=== PATIENT | female | born 1945 | race Caucasian/White ===

== ENCOUNTER 2017-07-11 17:47 | Emergency (ER) | payer MEDICARE, OTHER ==
[~2017-07-11] VITALS: Wt 56.8 kg
[~2017-07-11 17:47] MED LIST: CIPR500T4 PO; HYDR-3498 PO; IMO2 PO; MESA400C PO; METO10TA96 PO; METR500T PO; METR500T14 PO; MULT1TAB59 PO; ONDA4TAB35 PO; PANT40TA4 PO; PENT400T2 PO; POLY17PO6 PO; TRAM50TA2 PO; TRAZ50TA18 PO
--- NOTE | 2017-07-11 20:01 | ERD ---
ER Documentation Chief Complaint Chief Complaint anxiety s/p of son. tearful in triage. HPI The patient is a 72-year-old female, presenting to the ER because she was notified that her son about an hour ago. She then hyperventilated became very anxious and came to the ER. She is very sad and crying. Prior to having the bad news, she was fine. She denies fever, chills, complains of vague headache and anxiety due to the bad news, denies chest pain, dyspnea, chest pain with exertion/vomiting/diaphoresis. She complains of vague diffuse abdominal discomfort, denied dysuria, diarrhea, constipation. She does not smoke nor drink Past medical history: Anxiety, depression Past surgical history: 2 , right shoulder arthroscopic ROS All systems reviewed and are negative except as per history of present illness. Medications Home Meds Active Scripts Alprazolam* (Xanax*) 0.25 Mg Tablet, 0.25 MG PO bed time for ANXIETY, #5 TAB Prov:TAYLOR DAVIS MD 07/11/17 Ondansetron Hcl* (Zofran* ODT) 4 mg -ODT Tab.disper, 4 MG PO Q6 Y for NAUSEA AND /OR VOMITING, #10 TAB Prov:TAYLOR DAVIS MD 10/05/15 Metronidazole* (Flagyl*) 500 Mg Tablet, 500 MG PO TID for 7 Days, TAB Prov:TAYLOR DAVIS MD 10/05/15 Ciprofloxacin Hcl* (Ciprofloxacin Hcl*) 500 Mg Tablet, 500 MG PO BID for 7 Days , TAB Prov:TAYLOR DAVIS MD 10/05/15 Hydrocodone Bit-Acetaminophen* ([place]*) 5-325 Mg Tab, 1 TAB PO Q8 for SEVERE PAIN LEVEL 7-10, #30 TAB Prov:SAMM DORANTES MD 04/20/15 Loperamide Hcl* (Loperamide Hcl*) 2 Mg Cap, 2 MG PO QID Y for DIARRHEA, #30 CAP Prov:SAMM DORANTES MD 04/20/15 Metoclopramide Hcl* (Metoclopramide Hcl*) 10 Mg Tablet, 10 MG PO TID for NAUSEA AND/OR VOMITING, #30 TAB Prov:SAMM DORANTES MD 04/20/15 Pantoprazole (Protonix) 40 Mg Tabec, 40 MG PO DAILY, #30 TAB Prov:SAMM DORANTES MD 04/20/15 Mesalamine* (Delzicol*) 400 Mg Cap, 800 MG PO TID for Inflammatory bowel disease for 30 Days Prov:SAMM DORANTES MD 04/20/15 Pentoxifylline* (Pentoxifylline*) 400 Mg Tabsr, 400 MG PO TID for inflammatory bowel disease for 30 Days Prov:SAMM DORANTES MD 04/20/15 Metronidazole (Flagyl) 500 Mg Tab, 500 MG PO Q8 for colitis , #15 TAB Prov:SAMM DORANTES MD 04/20/15 Ciprofloxacin Hcl* (Ciprofloxacin Hcl*) 500 Mg Tablet, 500 MG PO BID, #10 TAB Prov:SAMM DORANTES MD 04/20/15 Reported Medications Polyethylene Glycol* (Miralax*) 17 Gm Powd.pack, 17 GM PO DAILY Y for CONSTIPATION, PACKET 04/17/15 Multivitamins* (Multivitamins*) 1 Each Tablet, 1 TAB PO DAILY, TAB 04/17/15 Trazodone Hcl* (Trazodone Hcl*) 50 Mg Tablet, 50 MG PO HS, TAB 12/11/14 Tramadol HCl (Tramadol HCl) 50 Mg Tab, 50 MG PO BID, TAB 12/11/14 Allergies Allergies: Coded Allergies: codeine (Verified Allergy, Unknown, 04/17/15) PMhx/Soc Medical and Surgical Hx: pt denies Medical Hx History of Surgery: Yes ( x 2, R shoulder surgery) Anesthesia Reaction: No Hx Neurological Disorder: No Hx Respiratory Disorders: No Hx Cardiac Disorders: No Hx Psychiatric Problems: No Hx Miscellaneous Medical Probl: Yes (chronic abd. pain,UTI,colitis) Hx Alcohol Use: No Hx Substance Use: No Hx Tobacco Use: No Smoking Status: Never smoker Physical Exam Vitals Vital Signs Date Time Temp Pulse Resp B/P Pulse Ox O2 Delivery O2 Flow Rate FiO2 07/11/17 23:42 78 20 155/61 97 Room Air 07/11/17 17:54 98.7 78 20 165/67 98 Physical Exam Const: No acute distress.Emotional, anxious Head: Atraumatic. Eyes: Normal Conjunctiva. ENT: Normal External Ears, Nose and Mouth. Neck: Full range of motion. No meningismus. Resp: Clear to auscultation bilaterally. Cardio: Regular rate and rhythm. Abd: Soft, non distended, normal bowel sounds, Vague and minimal diffuse abdominal discomfort, no rigidity, rebound, CVA tenderness Skin: No petechiae or rashes. Back: No midline or flank tenderness. Ext: No cyanosis, or edema. Neur: Awake and alert. No focal deficit Psych: Normal Mood and Affect. Result Diagram: 07/11/17211907/11/172119 Results 24 hrs Laboratory Tests Test 07/11/17 21:08 07/11/17 21:20 Bedside Urine pH (LAB) 7.0 Bedside Urine Protein (LAB) Negative Bedside Urine Glucose (UA) Negative Bedside Urine Ketones (LAB) Negative Bedside Urine Blood Trace-intact Bedside Urine Nitrite (LAB) Negative Bedside Urine Leukocyte Esterase (L Negative White Blood Count 9.210^3/ul Red Blood Count 4.4110^6/ul Hemoglobin 13.9g/dl Hematocrit 42.4% Mean Corpuscular Volume 96.1fl Mean Corpuscular Hemoglobin 31.5pg Mean Corpuscular Hemoglobin Concent 32.8g/dl Red Cell Distribution Width 12.5% Platelet Count 50041^3/UL Mean Platelet Volume 10.7fl Neutrophils % 69.2% Lymphocytes % 24.7% Monocytes % 5.0% Eosinophils % 0.4% Basophils % 0.5% Nucleated Red Blood Cells % 0.0/100WBC Neutrophils # 6.410^3/ul Lymphocytes # 2.310^3/ul Monocytes # 0.510^3/ul Eosinophils # 0.010^3/ul Basophils # 0.110^3/ul Nucleated Red Blood Cells # 0.010^3/ul Sodium Level 145mmol/L Potassium Level 4.3mmol/L Chloride Level 103mmol/L Carbon Dioxide Level 29mmol/L Anion Gap 17 Blood Urea Nitrogen 12mg/dl Creatinine 0.80mg/dl Glucose Level 124mg/dl Calcium Level 9.6mg/dl Total Bilirubin 0.2mg/dl Direct Bilirubin 0.00mg/dl Indirect Bilirubin 0.2mg/dl Aspartate Amino Transf (AST/SGOT) 29IU/L Alanine Aminotransferase (ALT/SGPT) 31IU/L Alkaline Phosphatase 70IU/L Total Protein 8.1g/dl Albumin 4.5g/dl Globulin 3.60g/dl Albumin/Globulin Ratio 1.25 Lipase 103U/L Current Medications Medications (Trade) Dose Ordered Sig/Bill Route PRN Reason Start Time Stop Time Status Last Admin Dose Admin Lorazepam (Ativan) 0.5 mg ONCE ONCE IV 07/11/17 21:00 07/11/17 21:01 DC 07/11/17 21:21 Procedures/MDM MEDICAL MAKING DECISION: The patient is a 72-year-old female, presenting with acute grief reaction, acute anxiety. She was treated with Ativan 0.5 mg IV with good response. Her abdominal exam is unremarkable and she is stable for outpatient follow-up The differential diagnoses considered include but are not limited to cholelithiasis, cholecystitis, cystitis, pancreatitis, hepatitis, gastritis, peptic ulcer disease, gastric ulcer, appendicitis, diverticulitis, cholangitis, choledocholithiasis, partial small bowel obstruction. Departure Diagnosis: Primary Impression: Grief reaction Additional Impression: Anxiety Condition: Good Comments She was discharged with 5 tablets of Xanax 0.25 mg at bedtime as needed The patient's blood pressure was elevated (>120/80) but appears stable without evidence of hypertension emergency or urgency. The patient was counseled about the risks of hypertension and urged to pursue outpatient monitoring and therapy within a week with their primary care physician. I discussed the findings with the patient. I advised the patient to follow-up with the primary physician in about 1-2 days, sooner if needed and return if any concern. Disclaimer: Inadvertent spelling and grammatical errors are likely due to EHR/ dictation software use and do not reflect on the overall quality of patient care. Also, please note that the electronic time recorded on this note does not necessarily reflect the actual time of the patient encounter. TAYLOR DAVIS MD Jul 11, 2017 20:01
[2017-07-11] MEDS ORDERED: LORAZEPAM 2 MG INJ IV ONE (21:00)
[2017-07-11] MEDS ORDERED: ALPR0.25 PO (23:10)
[2017-07-11 23:42] VITALS: BP 155/61; PULSE 78; RESP 20
== END 2017-07-11 23:43 | disposition home or self-care (01) ==
LOC: FTE 17:47
DX: F43.22 Adjustment disorder with anxiety (principal)
CPT/HCPCS: 80053; 81003; 83690; 85025; 96374; 99284; J2060

== ENCOUNTER 2017-08-30 15:27 | Emergency (ER) | payer MEDICARE, OTHER ==
[~2017-08-30] VITALS: Wt 48.4 kg
[~2017-08-30 15:27] MED LIST changes: +ALPR0.25 PO; -IMO2 PO; +LOPE-123 PO
[2017-08-30] MEDS ORDERED: KETOROLAC 30 MG INJ IM STA (15:51)
[2017-08-30] MEDS ORDERED: traMADol 50 MG TAB PO ONE (16:00)
--- NOTE | 2017-08-30 17:12 | RADRPT ---
PROCEDURE: XR right rib series. CLINICAL INDICATION: Right rib pain. TECHNIQUE: Three views of the right rib cage are available for review COMPARISON: 12/01/2008 FINDINGS: The osseous structures, articular spaces, and surrounding soft tissues of the right rib cage are int act. No acute fracture or dislocation is seen. No radiopaque foreign body is identified. The visua lized portions of the underlying lung is clear. The lungs are hyperinflated. Aortic atherosclerosis is noted. IMPRESSION: 1. Unremarkable right rib cage x-ray series. 2. Aortic atherosclerosis. . 3. Hyperinflation. RPTAT: JJ .Binu Marks MD, MD Date Time Electronically viewed and signed by .Binu Marks MD, on 08/30/2017 17:11 .A/
[2017-08-30] MEDS ORDERED: TRAM50TA2 PO (17:34)
[2017-08-30] MEDS ORDERED: IBUP400T22 PO (17:34)
--- NOTE | 2017-08-30 17:43 | ERD ---
ER Documentation Chief Complaint Chief Complaint RIGHT SIDE RIB PAIN S/P FALL 08/29 HS HPI This 72-year-old female presents with right rib pain after falling last night and hitting her rib on the edge of a bed. She lost her balance but denies any headache, shortness of breath, chest pain, syncope, seizure, weakness. Denies any hemoptysis, fevers. She has pain with deep breathing on the right side. She has no anterior chest pain, vomiting, abdominal pain. ROS All systems reviewed and are negative except as per history of present illness. Medications Home Meds Active Scripts Tramadol HCl (Tramadol HCl) 50 Mg Tablet, 50 MG PO Q4 Y for PAIN, #20 TAB Prov:CHETNA FERNANDEZ MD 08/30/17 Ibuprofen* (Motrin*) 400 Mg Tab, 400 MG PO Q6, #20 TAB Prov:CHETNA FERNANDEZ MD 08/30/17 Alprazolam* (Xanax*) 0.25 Mg Tablet, 0.25 MG PO bed time for ANXIETY, #5 TAB Prov:TAYLOR DAVIS MD 07/11/17 Ondansetron Hcl* (Zofran* ODT) 4 mg -ODT Tab.disper, 4 MG PO Q6 Y for NAUSEA AND /OR VOMITING, #10 TAB Prov:TAYLOR DAVIS MD 10/05/15 Metronidazole* (Flagyl*) 500 Mg Tablet, 500 MG PO TID for 7 Days, TAB Prov:TAYLOR DAVIS MD 10/05/15 Ciprofloxacin Hcl* (Ciprofloxacin Hcl*) 500 Mg Tablet, 500 MG PO BID for 7 Days , TAB Prov:TAYLOR DAVIS MD 10/05/15 Hydrocodone Bit-Acetaminophen* ([place]*) 5-325 Mg Tab, 1 TAB PO Q8 for SEVERE PAIN LEVEL 7-10, #30 TAB Prov:SAMM DORANTES MD 04/20/15 Loperamide Hcl* (Loperamide Hcl*) 2 Mg Cap, 2 MG PO QID Y for DIARRHEA, #30 CAP Prov:SAMM DORANTES MD 04/20/15 Metoclopramide Hcl* (Metoclopramide Hcl*) 10 Mg Tablet, 10 MG PO TID for NAUSEA AND/OR VOMITING, #30 TAB Prov:SAMM DORANTES MD 04/20/15 Pantoprazole (Protonix) 40 Mg Tabec, 40 MG PO DAILY, #30 TAB Prov:SAMM DORANTES MD 04/20/15 Mesalamine* (Delzicol*) 400 Mg Cap, 800 MG PO TID for Inflammatory bowel disease for 30 Days Prov:SAMM DORANTES MD 04/20/15 Pentoxifylline* (Pentoxifylline*) 400 Mg Tabsr, 400 MG PO TID for inflammatory bowel disease for 30 Days Prov:SAMM DORANTES MD 04/20/15 Metronidazole (Flagyl) 500 Mg Tab, 500 MG PO Q8 for colitis , #15 TAB Prov:SAMM DORANTES MD 04/20/15 Ciprofloxacin Hcl* (Ciprofloxacin Hcl*) 500 Mg Tablet, 500 MG PO BID, #10 TAB Prov:SAMM DORANTES MD 04/20/15 Reported Medications Polyethylene Glycol* (Miralax*) 17 Gm Powd.pack, 17 GM PO DAILY Y for CONSTIPATION, PACKET 04/17/15 Multivitamins* (Multivitamins*) 1 Each Tablet, 1 TAB PO DAILY, TAB 04/17/15 Trazodone Hcl* (Trazodone Hcl*) 50 Mg Tablet, 50 MG PO HS, TAB 12/11/14 Tramadol HCl (Tramadol HCl) 50 Mg Tab, 50 MG PO BID, TAB 12/11/14 Allergies Allergies: Coded Allergies: codeine (Verified Allergy, Unknown, 04/17/15) PMhx/Soc History of Surgery: Yes (R SHOULDER, C SECTION X'S 2) Anesthesia Reaction: No Hx Neurological Disorder: No Hx Respiratory Disorders: No Hx Cardiac Disorders: No Hx Psychiatric Problems: No Hx Miscellaneous Medical Probl: No Hx Alcohol Use: No Hx Substance Use: No Hx Tobacco Use: No Physical Exam Vitals Vital Signs Date Time Temp Pulse Resp B/P Pulse Ox O2 Delivery O2 Flow Rate FiO2 08/30/17 15:29 99.8 89 20 134/91 97 Physical Exam Const: [] Alert, [id number]. Head: Atraumatic Eyes: Normal Conjunctiva ENT: Normal External Ears, Nose and Mouth. Neck: Full range of motion..~ No meningismus. Resp: Clear to auscultation bilaterally Cardio: Regular rate and rhythm, no murmurs. Tenderness on the right T10 anterior laterally. There is no crepitance, deformities, ecchymosis. Abd: Soft, non tender, non distended. Normal bowel sounds Skin: No petechiae or rashes Back: No midline or flank tenderness Ext: No cyanosis, or edema Neur: Awake and alert Psych: Normal Mood and Affect Results 24 hrs Current Medications Medications (Trade) Dose Ordered Sig/Bill Route PRN Reason Start Time Stop Time Status Last Admin Dose Admin Tramadol HCl (Ul[place]am) 50 mg ONCE ONCE PO 08/30/17 16:00 08/30/17 16:01 DC 08/30/17 16:00 Ketorolac Tromethamine (Toradol) 30 mg ONCE STAT IM 08/30/17 15:51 08/30/17 15:53 DC 08/30/17 15:59 Procedures/MDM EKG: Rate/Rhythm: [Normal Sinus Rhythm] rate equals 81 QRS, ST, T-waves: [No changes consistent w/ acute ischemia] Impression: [No evidence of ischemia or arrhythmia] impression-normal EKG X-ray right ribs 2V Interpreted by me: Soft Tissue: No acute abnormalities Bones: No acute abnormalities Mediastinum/Cardiac Silhouette/Lungs: [No acute abnormalities]. Impression- no acute abnormality noted on right rib x-ray Patient was given Toradol 30 mg IM and tramadol 50 mg of mouth. Patient has signs and symptoms of a right rib contusion without evidence of hemothorax, pneumothorax, fracture, abdominal pain, hypoxemia, respiratory distress. There is no signs or symptoms to suggest emergent causes of falling appears to be a mechanical fall. She will be treated with tramadol, ibuprofen and primary care follow-up and return precautions for fevers, blood, vomiting, new worsening symptoms or primary care doctor this week. The patient was stable with no new complaints during the ER course. Clinically, there is no current evidence to suggest meningitis, sepsis, acute abdomen, pneumonia, acute coronary syndrome, pulmonary embolism, or any other emergent condition appearing to require further evaluation or hospitalization. The patient should certainly return for any new or worsening symptoms per the aftercare instructions. They should otherwise follow-up with her primary care doctor for reevaluation this week. Departure Diagnosis: Primary Impression: Rib contusion Encounter type: initial encounter Laterality: right Qualified Code: S20.211A - Contusion of rib on right side, initial encounter Condition: Stable Patient Instructions: Rib Contusion Additional Instructions: X-ray and EKG read as normal today. Recheck for blood, fevers, new or worsening symptoms. CHETNA FERNANDEZ MD Aug 30, 2017 17:43
== END 2017-08-30 18:22 | disposition home or self-care (01) ==
LOC: FTE 15:27
DX: S20.211A Contusion of right front wall of thorax, initial encounter (principal); W22.8XXA Striking against or struck by other objects, initial encounter; Y92.9 Unspecified place or not applicable
CPT/HCPCS: 71100; 96372; 99284; J1885

== ENCOUNTER 2017-09-05 14:07 | Emergency (ER) | payer MEDICARE, OTHER ==
[~2017-09-05] VITALS: Ht 154.9 cm; Wt 46.2 kg
[~2017-09-05 14:07] MED LIST changes: +IBUP400T22 PO
[2017-09-05 14:11] VITALS: Ht 154.9 cm; Wt 46.2 kg
--- NOTE | 2017-09-05 19:21 | ERD ---
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 The patient reports that her symptoms got worse this morning. She does not endorse any dysuria or bleeding or discharge with urination. She does not endorse any discharge or bleeding from her vagina. She does endorse suprapubic discomfort. She reportedly has been on ciprofloxacin over the last week to treat some infection that she has. The patient denies feeling sick recently. The patient denies fever or chills. The patient has had no headache or vision changes. The patient does not endorse neck or back pain. The patient denies lightheadedness or dizziness. The patient has had no chest pain or shortness of breath or trouble breathing. The patient denies nausea or vomiting. The patient denies changes to bowel movements presently. The patient has had no focal deficits. The patient has had no weakness or numbness or tingling to the face or extremities. ROS All systems reviewed and are negative except as per history of present illness. Medications Home Meds Active Scripts Alprazolam* (Xanax*) 0.25 Mg Tablet, 0.25 MG PO bed time for ANXIETY, #5 TAB Prov:TAYLOR DAVIS MD 07/11/17 Ciprofloxacin Hcl* (Ciprofloxacin Hcl*) 500 Mg Tablet, 500 MG PO BID for 7 Days , TAB Prov:TAYLOR DAVIS MD 10/05/15 Reported Medications Trazodone Hcl* (Trazodone Hcl*) 50 Mg Tablet, 50 MG PO Q6H, TAB 12/11/14 Discontinued Reported Medications Polyethylene Glycol* (Miralax*) 17 Gm Powd.pack, 17 GM PO DAILY Y for CONSTIPATION, PACKET 04/17/15 Multivitamins* (Multivitamins*) 1 Each Tablet, 1 TAB PO DAILY, TAB 04/17/15 Tramadol HCl (Tramadol HCl) 50 Mg Tab, 50 MG PO BID, TAB 12/11/14 Discontinued Scripts Tramadol HCl (Tramadol HCl) 50 Mg Tablet, 50 MG PO Q4 Y for PAIN, #20 TAB Prov:CHETNA FERNANDEZ MD 08/30/17 Ibuprofen* (Motrin*) 400 Mg Tab, 400 MG PO Q6, #20 TAB Prov:CHETNA FERNANDEZ MD 08/30/17 Ondansetron Hcl* (Zofran* ODT) 4 mg -ODT Tab.disper, 4 MG PO Q6 Y for NAUSEA AND /OR VOMITING, #10 TAB Prov:TAYLOR DAVIS MD 10/05/15 Metronidazole* (Flagyl*) 500 Mg Tablet, 500 MG PO TID for 7 Days, TAB Prov:TAYLOR DAVIS MD 10/05/15 Hydrocodone Bit-Acetaminophen* ([place]*) 5-325 Mg Tab, 1 TAB PO Q8 for SEVERE PAIN LEVEL 7-10, #30 TAB Prov:SAMM DORANTES MD 04/20/15 Loperamide Hcl* (Loperamide Hcl*) 2 Mg Cap, 2 MG PO QID Y for DIARRHEA, #30 CAP Prov:SAMM DORANTES MD 04/20/15 Metoclopramide Hcl* (Metoclopramide Hcl*) 10 Mg Tablet, 10 MG PO TID for NAUSEA AND/OR VOMITING, #30 TAB Prov:SAMM DORANTES MD 04/20/15 Pantoprazole (Protonix) 40 Mg Tabec, 40 MG PO DAILY, #30 TAB Prov:SAMM DORANTES MD 04/20/15 Mesalamine* (Delzicol*) 400 Mg Cap, 800 MG PO TID for Inflammatory bowel disease for 30 Days Prov:SAMM DORANTES MD 04/20/15 Pentoxifylline* (Pentoxifylline*) 400 Mg Tabsr, 400 MG PO TID for inflammatory bowel disease for 30 Days Prov:SAMM DORANTES MD 04/20/15 Metronidazole (Flagyl) 500 Mg Tab, 500 MG PO Q8 for colitis , #15 TAB Prov:SAMM DORANTES MD 04/20/15 Ciprofloxacin Hcl* (Ciprofloxacin Hcl*) 500 Mg Tablet, 500 MG PO BID, #10 TAB Prov:SAMM DORANTES MD 04/20/15 Allergies Allergies: Coded Allergies: codeine (Verified Allergy, Unknown, 09/05/17) PMhx/Soc History of Surgery: Yes (R SHOULDER, C SECTION X'S 2) Anesthesia Reaction: No Hx Neurological Disorder: No Hx Respiratory Disorders: No Hx Cardiac Disorders: No Hx Psychiatric Problems: No Hx Miscellaneous Medical Probl: Yes (tumor around genital area) Hx Alcohol Use: No Hx Substance Use: No Hx Tobacco Use: No Smoking Status: Never smoker FmHx Family History: No coronary disease, No diabetes Physical Exam Vitals Vital Signs Date Time Temp Pulse Resp B/P Pulse Ox O2 Delivery O2 Flow Rate FiO2 09/05/17 18:30 98.1 87 16 116/76 97 Room Air 09/05/17 14:11 98.6 103 20 142/66 97 Physical Exam Const: No apparent distress, well-developed, well-nourished Head: Normocephalic, Atraumatic Eyes: Normal Conjunctiva. Extraocular movements intact. Pupils equal, round and reactive to light ENT: Normal External Ears, Nose and Mouth. Neck: Full range of motion. No meningismus. Resp: Clear to auscultation bilaterally, No wheezes, rales or rhonchi Cardio: Regular rate and rhythm. No murmurs, rubs or gallops Abd: Suprapubic tenderness. Soft, non distended. Normal bowel sounds : White/yellow cervical discharge, CMT, Left adnexal tenderness Skin: No petechiae or rashes Back: No midline tenderness. No CVA tenderness Ext: No cyanosis, or edema Neur: Awake and alert, oriented 4. Cranial nerves intact. No facial droop. Normal strength, sensation and coordination. Psych: Normal Mood and Affect Results 24 hrs Laboratory Tests Test 09/05/17 19:55 Urine Color YELLOW Urine Clarity CLEAR Urine pH 6.0 Urine Specific [place] 1.021 Urine Ketones 2+mg/dL Urine Nitrite NEGATIVEmg/dL Urine Bilirubin NEGATIVEmg/dL Urine Urobilinogen NEGATIVEmg/dL Urine Leukocyte Esterase NEGATIVELeu/ul Urine Hemoglobin NEGATIVEmg/dL Urine Glucose NEGATIVEmg/dL Urine Total Protein NEGATIVEmg/dl Current Medications Medications (Trade) Dose Ordered Sig/Bill Route PRN Reason Start Time Stop Time Status Last Admin Dose Admin Ketorolac Tromethamine (Toradol) 15 mg ONCE STAT IM 09/05/17 19:26 09/05/17 19:28 DC 09/05/17 19:33 Famotidine (Pepcid Iv) 20 mg ONCE ONCE IV 09/05/17 22:30 09/05/17 22:31 DC Miscellaneous Medication (Gi Cocktail (2)) 40 ml ONCE ONCE PO 09/05/17 22:30 09/05/17 22:31 DC 09/05/17 22:59 Acetaminophen (Tylenol Tab) 650 mg ONCE ONCE PO 09/05/17 22:30 09/05/17 22:31 DC Morphine Sulfate (morphine) 2 mg ONCE STAT IV 09/05/17 22:27 09/05/17 22:29 DC 09/05/17 22:59 Ceftriaxone Sodium (Rocephin) 250 mg ONCE ONCE IM 09/05/17 23:00 09/05/17 23:01 DC 09/05/17 23:10 Doxycycline Hyclate (Vibramycin) 100 mg ONCE ONCE PO 09/05/17 23:00 09/05/17 23:01 DC 09/05/17 23:10 Procedures/MDM MDM The patient's presentation warrants further investigation. The patient has symptoms that are concerning for pelvic inflammatory disease. The patient is unsure if she could have a sexually transmitted infection or not. The samples from her cervical discharge were sent to the lab. The patient will be treated for PID. LABS The patient's urinalysis is positive for ketones but otherwise negative for hematuria or infection. TREATMENT/DISPOSITION The patient will be treated for PID. She be instructed to change her antibiotic regimen. She will be given Rocephin IM in the emergency department. She will be sent home with a 14 day course of doxycycline. She will be instructed to follow-up with her primary care physician as well as her cardiovascular tech. I do not see evidence in the electronic medical record of a uterine or vaginal tumor. I do not see any evidence of a mass during the pelvic exam. The patient was given Toradol and Tylenol the emergency department with some relief of her abdominal pain. She was ultimately given a dose of morphine IM. She will be instructed to continue taking ibuprofen or Tylenol as needed for pain. She also has tramadol at home. At this time, I feel that the patient stable for discharge. The patient will need follow-up with his primary care physician in 2-3 days. The patient will be given strict precautions with which to return to the emergency department. The patient's blood pressure was elevated at greater than 120/80 while in the emergency department. The patient was otherwise stable with no evidence of hypertensive urgency or emergency or end organ damage. The patient does not require admission for blood pressure control. I have discussed with the patient the risks of hypertension. I have advised the patient to follow up with the primary care physician for outpatient monitoring and treatment for hypertension in 2-3 days. I have instructed the patient to return to the ER for any new or worsening symptoms including chest pain, shortness of breath, headache, blurred vision, confusion, nausea, vomiting or LOC. Disclaimer: Inadvertent spelling and grammatical errors are likely due to EHR/ dictation software use and do not reflect on the overall quality of patient care. Note that the electronic time recorded on this note does not necessarily reflect the actual time of the patient encounter. Departure Diagnosis: Primary Impression: Suprapubic pain Additional Impression: PID (pelvic inflammatory disease) Condition: ANNA Us MD Sep 05, 2017 19:21
[2017-09-05] MEDS ORDERED: KETOROLAC 15 MG INJ IM STA (19:26)
[2017-09-05 20:15] LABS: ADD UMIC NO; UR ASCORBIC ACID 40 mg/dL (NEGATIVE); UR BILIRUBIN (Dip) NEGATIVE (NEGATIVE); UR BLOOD (Dip) NEGATIVE (NEGATIVE); UR CLARITY CLEAR (CLEAR); UR COLOR YELLOW (YELLOW); UR GLUCOSE (Dip) NEGATIVE (NEGATIVE); UR KETONES (Dip) 2+ mg/dL (NEGATIVE); UR LEUKOCYTE ESTERASE (Dip) NEGATIVE Leu/ul (NEGATIVE); UR NITRITE (Dip) NEGATIVE (NEGATIVE); UR SPECIFIC GRAVITY (Dip) 1.021 (1.003-1.030); UR TOTAL PROTEIN (Dip) NEGATIVE (NEGATIVE); UR UROBILINOGEN (Dip) NEGATIVE (NEGATIVE)
[2017-09-05] MEDS ORDERED: morphine 2 MG INJ IV STA (22:27)
[2017-09-05] MEDS ORDERED: ACETAMINOPHEN 325 MG TAB PO ONE (22:30)
[2017-09-05] MEDS ORDERED: FAMOTIDINE 20 MG INJ IV ONE (22:30)
[2017-09-05] MEDS ORDERED: LIDOCAINE/MYLANTA 40 ML BTL PO ONE (22:30)
[2017-09-05] MEDS ORDERED: CEFTRIAXONE 250 MG INJ IM ONE (23:00)
[2017-09-05] MEDS ORDERED: DOXYCYCLINE 100 MG TAB PO ONE (23:00)
[2017-09-05] MEDS ORDERED: DOXY100T20 PO (23:27)
[2017-09-05 23:35] VITALS: BP 118/70; PULSE 70; RESP 15; TEMP 98.1
== END 2017-09-05 23:35 | disposition home or self-care (01) ==
LOC: E/R 14:07
DX: N73.9 Female pelvic inflammatory disease, unspecified (principal)
CPT/HCPCS: 81003; 87591; 96372; 96374; 99284; J0696; J1885; J2270

== ENCOUNTER 2017-09-23 15:31 | Emergency (ER) | END 2017-09-23 18:24 | disposition home or self-care (01) ==

== ENCOUNTER 2017-10-03 17:00 | Emergency (ER) | END 2017-10-03 19:39 | disposition left against medical advice (07) ==

== ENCOUNTER 2017-11-08 14:36 | Emergency (ER) | END 2017-11-08 21:25 | disposition left against medical advice (07) ==

== ENCOUNTER 2017-11-10 14:09 | Emergency (ER) | END 2017-11-10 18:33 | disposition home or self-care (01) ==

== ENCOUNTER 2017-12-25 13:37 | Emergency (ER) | END 2017-12-25 20:15 | disposition home or self-care (01) ==

== ENCOUNTER 2018-01-02 16:01 | Emergency (ER) | END 2018-01-02 19:39 | disposition home or self-care (01) ==

== ENCOUNTER 2018-04-08 19:50 | Emergency (ER) | END 2018-04-08 21:52 | disposition left against medical advice (07) ==

== ENCOUNTER 2018-07-05 17:44 | Emergency (ER) | END 2018-07-05 23:05 | disposition home or self-care (01) ==

== ENCOUNTER 2019-06-05 19:02 | Emergency (ER) | payer OTHER ==
[~2019-06-05] VITALS: Ht 154.9 cm; Wt 61.0 kg
[~2019-06-05 19:02] MED LIST changes: -ALPR0.25 PO; -CIPR500T4 PO; +CLIN300C10 PO; -HYDR-3498 PO; +HYDR-3980 PO; -IBUP400T22 PO; +IBUP800T48 PO; -LOPE-123 PO; -MESA400C PO; -METO10TA96 PO; -METR500T PO; -METR500T14 PO; -MULT1TAB59 PO; +OLAN5TAB5 PO; -ONDA4TAB35 PO; -PANT40TA4 PO; -PENT400T2 PO; -POLY17PO6 PO; +SERT50TA6 PO; +TRAM50TA PO; -TRAM50TA2 PO; -TRAZ50TA18 PO
[2019-06-05 19:08] VITALS: Ht 154.9 cm; Wt 61.0 kg
[2019-06-05] MEDS ORDERED: SOD CHLORIDE 0.9% 1,000 ML IV STA (20:59)
[2019-06-05] MEDS ORDERED: KETOROLAC 15 MG INJ IV STA (20:59)
[2019-06-05 21:07] VITALS: BP 149/82; PULSE 79; RESP 16
== END 2019-06-05 22:39 | disposition home or self-care (01) ==
LOC: E/R 19:02
DX: D25.9 Leiomyoma of uterus, unspecified (principal)
CPT/HCPCS: 36415; 76856; 80053; 81003; 83690; 85025; 96374; 99285; J1885; J7030